=== PATIENT | female | born 1980 | race African-American/Black ===

== ENCOUNTER 2016-10-10 18:28 | Emergency (ER) | payer OTHER ==
--- NOTE | ~2016-10-10 | CT4 ---
[facility] A Service of [facility] RADIOLOGY TEXT RESULTS PATIENT: NICK VICTOR LOCATION: [facility] : 80 UNIT #: [id number] AGE: [address]: Rosalia Reyes MD SEX: F ORDER DR: [id number] [facility] [address] [place], [place] [address] [id number] MR#: [id number] Acc #: [id number] NAME: NICK VICTOR : 1980 SEX: F STUDY DATE/TIME: 10/10/2016 23:08 UNIT: [facility] ROOM: STUDY DESCRIPTION: CT Abd and Pelv Wo Cont Attending Physician: Rosalia Reyes M.D. Ordering Physician: Rosalia Reyes M.D. Primary Care Physician: No Primary Care Physician MEDICAL IMAGING REPORT This report is preliminary unless electronic signature is present EXAM Abdomen and pelvis CT 10/10/2016 at 23:08 INDICATIONS Headaches, abdominal pain and diarrhea for the last 5 days. Nausea. TECHNIQUE Axial noncontrast images were obtained through the abdomen and pelvis. Multiplanar reformats were obtained. No comparison. This CT exam was performed with one or more of the following radiation dose reduction techniques: automatic control, adjustment of mA and/or kV according to patient size, and iterative reconstruction. FINDINGS ABDOMEN: Minimal dependent atelectasis noted in both lung bases. Gallbladder is normal. Tiny nonobstructing stones are suspected in both kidneys. No ureteral stones are seen on either side. There is no hydronephrosis. The unenhanced solid organs are otherwise normal. No free fluid or adenopathy is seen. The unopacified GI tract is normal. PELVIS: There are no lower ureteral stones. The bladder is normal. Solid pelvic organs are normal. No free fluid is seen. The unopacified GI tract, including the appendix, is normal as well. IMPRESSION 1. No acute findings in the abdomen or pelvis. 2. Tiny bilateral nonobstructing renal stones. No ureteral stones are seen, and there is no hydronephrosis. 3. Normal unopacified GI tract, including the appendix. Dictated by... Corey Almodovar Jr., M.D. [facility] A Service of [facility] RADIOLOGY TEXT RESULTS PATIENT: NICK VICTOR LOCATION: [facility] : 80 UNIT #: [id number] AGE: [address]: Rosalia Reyes MD SEX: F ORDER DR: THIS IS AN ELECTRONICALLY VERIFIED REPORT Corey Almodovar Jr., M.D. at 10/11/2016 5:52 AM ESE/laury TD: 10/11/2016 04:13 JOB #: [id number] MEDICAL IMAGING REPORT Page 1 of 1 COPY
[2016-10-10 19:22] LABS: BASOPHIL% 0.1 % (0-2.5); EOSINOPHIL# 0.2 X10e3 (0-0.7); EOSINOPHIL% 1.8 % (0.0-7.0); HEMATOCRIT 36.2 % (35.0-45.0); HEMOGLOBIN 11.2 gm/dL (12.0-16.0); LYMPHOCYTE# 1.7 X10e3 (1.0-3.5); LYMPHOCYTE% 19.6 % (17.0-45.0); MEAN CELL VOLUME 79.8 FL (83-96); MEAN CORPUSCULAR HEMOGLOBIN 24.7 PG (28-34); MEAN CORPUSCULAR HGB CONC 30.9 g/dL (30-36); MEAN PLATELET VOLUME 8.7 FL (6.5-11.5); MONOCYTE# 0.6 X10e3 (0-1.0); NEUTROPHIL# 6.4 X10e3 (1.5-7.1); NEUTROPHIL% 71.5 % (40-75); PLATELET COUNT 171 X10e3 (140-420); RED BLOOD COUNT 4.53 X10e (3.90-5.30); RED CELL DISTRIBUTION WIDTH 17.8 % (11.0-15.5); WHITE BLOOD COUNT 8.9 X10e3 (4.0-10.5)
[2016-10-10 19:23] LABS: DIFF IND NO
[2016-10-10 19:47] LABS: ALBUMIN SERUM 3.9 g/dL (3.5-5.0); ALKALINE PHOSPHATASE 80 U/L (32-92); ALT (SGPT) 20 U/L (10-40); AST (SGOT) 21 U/L (10-42); BILIRUBIN,TOTAL 0.7 mg/dL (0.2-2.0); BLOOD UREA NITROGEN 9 mg/dL (9-23); BUN/CREATININE RATIO 11.25; CALCIUM SERUM 8.6 mg/dL (8.4-10.2); CARBON DIOXIDE 23 mmol/L (22-31); CHLORIDE 108 mmol/L (100-111); CREATININE SERUM 0.8 mg/dL (0.6-1.4); GLUCOSE FASTING 94 mg/dL (70-110); LIPASE 20 U/L (22-51); POTASSIUM 3.6 mmol/L (3.5-5.1); PROTEIN TOTAL SERUM 7.9 g/dL (6.0-8.3); SODIUM 138 mmol/L (135-145)
[2016-10-10 19:48] LABS: BILIRUBIN, DIRECT <0.1 mg/dL (0.0-0.2); BILIRUBIN,INDIRECT 0.6 mg/dL (0.0-0.9)
[2016-10-10 20:23] LABS: URINE SOURCE CLEAN CATCH
[2016-10-10 20:37] LABS: CULTURE INDICATED? YES; URINE APPEARANCE CLEAR; URINE BACTERIA AUWI 1+ (NEGATIVE); URINE BILIRUBIN NEG (NEG); URINE BLOOD 2+ (NEG); URINE COLOR YELLOW; URINE GLUCOSE NEG (NEG); URINE KETONE NEG (NEG); URINE LEUKOCYTE ESTERASE NEG (NEG); URINE NITRATE NEG (NEG); URINE PROTEIN TRACE (NEG); URINE SPECIFIC GRAVITY 1.032 (1.003-1.035); URINE SQUAMOUS EPITHELIAL CELL MOD /[HPF]; URINE UROBILINOGEN 0.2 MG/DL (NEG)
== END 2016-10-11 01:10 | disposition home or self-care (01) ==
LOC: CED 18:28
DX: R51 Headache (principal); R10.9 Unspecified abdominal pain; R19.7 Diarrhea, unspecified; J45.909 Unspecified asthma, uncomplicated; K21.9 Gastro-esophageal reflux disease without esophagitis; Z98.890 Other specified postprocedural states; Z88.8 Allergy status to other drugs, medicaments and biological substances
CPT/HCPCS: 36415; 74176; 80048; 80076; 81003; 83690; 84703; 85025; 87086; 99284; J2270; J2405